=== PATIENT | female | born 1990 | race Caucasian/White ===

== ENCOUNTER 2022-06-03 15:22 | Emergency (ER) | payer SELFPAY ==
[~2022-06-03] VITALS: Ht 172.7 cm; Wt 75.0 kg
[2022-06-03 15:24] VITALS: BP 127/73
[2022-06-03] MEDS ORDERED: METHOCARBAMOL 500MG TABLET PO ONE (16:45)
[2022-06-03] MEDS ORDERED: KETOROLAC 15MG/ML VIAL IM ONE (16:45)
[2022-06-03] MEDS ORDERED: IBUP-2029 MT (17:15)
[2022-06-03] MEDS ORDERED: METH-653 MT (17:15)
== END 2022-06-03 18:06 | disposition home or self-care (01) ==
LOC: ER 15:22
DX: M43.6 Torticollis (principal)
CPT/HCPCS: 71045; 81025; 93005; 96372; 99283; J1885

== ENCOUNTER 2023-11-18 19:37 | Emergency (ER) | payer MEDICAID ==
[~2023-11-18] VITALS: Ht 162.6 cm; Wt 91.0 kg
[~2023-11-18 19:37] MED LIST: IBUP-2029 MT; METH-653 MT
[2023-11-18 19:46] VITALS: TEMP 98.7; O2SAT 96
[2023-11-18] MEDS: LORAZEPAM 2MG/ML INJ IV ONE (20:15)
[2023-11-18 20:36] LABS: BASOPHILS % 0.3 % (0.0-2.0); EOSINOPHILS % 2.1 % (0.0-5.0); HEMATOCRIT. 36.9 % (36.0-48.0); HEMOGLOBIN. 12.5 g/dL (12.0-16.0); LYMPHOCYTES % 45.9 % (20.0-50.0); MEAN CORPUSCULAR HEMOGLOBIN 28.6 pg (28.0-32.0); MEAN PLATELET VOLUME 9.3 fl (7.4-10.4); MONOCYTES % 6.2 % (2.0-8.0); NEUTROPHILS % 45.5 % (40.0-76.0); PLATELET 255 x1000/uL (130-400); RED BLOOD CELL COUNT 4.39 mill/uL (4.2-5.4); WHITE BLOOD COUNT 9.4 x1000/uL (4.5-11.0)
[2023-11-18 20:49] LABS: HCG SCREEN NEGATIVE
[2023-11-18 20:50] LABS: CHLORIDE 105 mEq/L (98-107); POTASSIUM 3.8 mEq/L (3.5-5.1); SODIUM 140 mEq/L (136-145)
[2023-11-18 20:51] LABS: CALCIUM 9.6 mg/dL (8.7-10.4); CARBON DIOXIDE 26 mEq/L (21-32)
[2023-11-18 20:56] LABS: CREATININE 0.8 mg/dL (0.6-1.0); GLUCOSE 99 mg/dL (70-105); UREA NITROGEN BLOOD 12 mg/dL (9-23)
[2023-11-18 20:57] LABS: TROPONIN I HIGH SENSITIVITY < 4 ng/L (3.0-34)
[2023-11-18 20:58] LABS: ALANINE AMINOTRANSFERASE 15 IU/L (10-49); ALBUMIN 4.5 g/dL (3.2-4.8); ASPARTATE AMINOTRANSFERASE 17 IU/L (<34); BILIRUBIN TOTAL 0.3 mg/dL (0.1-1.0); CREATINE KINASE 65 IU/L (34-145); PROTEIN TOTAL 7.7 g/dL (6.0-8.3)
[2023-11-18] MEDS: KETOROLAC 15MG/ML VIAL IV ONE (22:15)
[2023-11-19 00:11] VITALS: BP 128/76; PULSE 80; RESP 18
== END 2023-11-19 00:12 | disposition home or self-care (01) ==
LOC: ER 19:37
DX: R55 Syncope and collapse (principal); F43.0 Acute stress reaction; F19.90 Other psychoactive substance use, unspecified, uncomplicated
CPT/HCPCS: 36415; 80053; 82550; 82962; 84146; 84484; 84703; 85025; 93005; 99284

== ENCOUNTER 2024-08-24 16:53 | Emergency (ER) | payer SELFPAY ==
[~2024-08-24] VITALS: Ht 165.1 cm; Wt 72.0 kg
[2024-08-24 17:00] VITALS: TEMP 36.8; O2SAT 99
[2024-08-24] MEDS: SULFAMETHOXAZOLE/TRIMETHOPRIM 800/160MG TABLET PO ONE (20:45)
[2024-08-24] MEDS: CEFTRIAXONE SODIUM 1G VIAL IM ONE (20:45)
[2024-08-24] MEDS ORDERED: NAPR220C61 MT (21:27)
[2024-08-24] MEDS ORDERED: SULF1TAB48 MT (21:27)
[2024-08-24] MEDS ORDERED: CEPH500C2 MT (21:27)
[2024-08-24 21:59] VITALS: TEMP 98.3
[2024-08-24] MEDS: KETOROLAC 30MG/ML VIAL IM ONE (21:59)
[2024-08-24] MEDS: ACETAMINOPHEN 325MG TABLET PO ONE (21:59)
[2024-08-24 22:00] VITALS: BP 112/75; PULSE 85; RESP 16; O2SAT 99
== END 2024-08-24 22:01 | disposition home or self-care (01) ==
LOC: ER 16:53
DX: L03.115 Cellulitis of right lower limb (principal); Z79.899 Other long term (current) drug therapy; Z98.890 Other specified postprocedural states
CPT/HCPCS: 99284; 96372; J1885; J0696

== ENCOUNTER 2025-03-03 13:43 | Emergency (ER) | payer MEDICAID ==
[~2025-03-03] VITALS: Ht 162.6 cm; Wt 73.0 kg
[~2025-03-03 13:43] MED LIST changes: +CEPH500C2 MT; +IBUP-1455 MT; -IBUP-2029 MT; +NAPR220C61 MT; +SULF1TAB48 MT
[2025-03-03 13:54] VITALS: O2SAT 98
[2025-03-03 14:48] LABS: BASOPHILS % 0.3 % (0.0-2.0); EOSINOPHILS % 1.9 % (0.0-5.0); HEMATOCRIT. 37.7 % (36.0-48.0); HEMOGLOBIN. 12.5 g/dL (12.0-16.0); LYMPHOCYTES % 29.4 % (20.0-50.0); MEAN PLATELET VOLUME 9.4 fl (7.4-10.4); MONOCYTES % 6.0 % (2.0-8.0); NEUTROPHILS % 62.4 % (40.0-76.0); PLATELET 247 x1000/uL (130-400); RED BLOOD CELL COUNT 4.44 mill/uL (4.2-5.4); RED CELL DISTRIBUTION WIDTH 14.2 % (11.6-14.6)
[2025-03-03 15:00] LABS: CREATININE 0.8 mg/dL (0.6-1.0)
[2025-03-03] MEDS: KETOROLAC 15MG/ML VIAL IM ONE (15:00)
[2025-03-03] MEDS: ONDANSETRON 4MG ODT PO ONE (15:00)
[2025-03-03] MEDS: ACETAMINOPHEN 325MG TABLET PO ONE (15:00)
[2025-03-03 15:01] LABS: UREA NITROGEN BLOOD 8 mg/dL (9-23)
[2025-03-03 15:02] LABS: ASPARTATE AMINOTRANSFERASE 21 IU/L (<34); HCG SCREEN NEGATIVE
[2025-03-03 15:03] LABS: BILIRUBIN DIRECT 0.1 mg/dL (<=3.0); BILIRUBIN TOTAL 0.4 mg/dL (0.1-1.0); PROTEIN TOTAL 7.4 g/dL (6.0-8.3)
[2025-03-03 16:10] LABS: TROPONIN I HIGH SENSITIVITY < 4 ng/L (3.0-34)
[2025-03-03 16:12] LABS: COLOR URINE YELLOW (YELLOW); GLUCOSE URINE NEGATIVE (NEGATIVE); KETONES URINE NEGATIVE (NEGATIVE); LEUKOCYTE ESTERASE URINE TRACE (NEGATIVE); NITRITE URINE NEGATIVE (NEGATIVE); OCCULT BLOOD URINE 3+ (NEGATIVE); PH URINE 6.0 (4.5-8.0); PROTEIN URINE NEGATIVE (NEGATIVE); SPECIFIC GRAVITY URINE 1.015 (1.005-1.030); UROBILINOGEN URINE 0.2 E.U./dL (0.2-1.0)
[2025-03-03 16:27] LABS: CLARITY URINE HAZY (CLEAR)
[2025-03-03 16:30] LABS: RBC URINE 0-2 /hpf (0-2); WBC URINE 0-2 /hpf (0-2)
[2025-03-03 16:31] LABS: BACTERIA URINE 1+; SQUAMOUS EPITHELIAL CELL URINE 2+ /lpf (RARE/1+)
[2025-03-03] MEDS ORDERED: SULF1TAB48 MT (16:42)
[2025-03-03] MEDS ORDERED: NAPR220C61 MT (16:42)
[2025-03-03] MEDS ORDERED: TUSSL MT (16:46)
[2025-03-03] MEDS ORDERED: NAPR275T96 MT (16:46)
[2025-03-03] MEDS ORDERED: CEPH500C2 MT (16:46)
[2025-03-03 16:59] LABS: INFLUENZA TYPE A Presumptive Negative (Pres. Neg.); INFLUENZA TYPE B Presumptive Negative (Pres. Neg.)
[2025-03-03 17:14] VITALS: BP 120/63; PULSE 80; RESP 14; TEMP 36.7; O2SAT 98
== END 2025-03-03 17:16 | disposition home or self-care (01) ==
LOC: ER 13:57
DX: N39.0 Urinary tract infection, site not specified (principal); Z20.822 Contact with and (suspected) exposure to COVID-19; G43.909 Migraine, unspecified, not intractable, without status migrainosus; Z98.890 Other specified postprocedural states; Z79.899 Other long term (current) drug therapy
CPT/HCPCS: 99285; 74176; 71045; 87426; 80076; 80048; 81003; 84703; 87430; 83690; 85025; 84484; 87070; 87804 ×2; 36415; 96372; J1885; Q0162